=== PATIENT | male | born 1980 | race African-American/Black ===

== ENCOUNTER 2016-11-20 18:53 | Emergency (ER) | payer SELFPAY ==
[~2016-11-20] VITALS: Ht 165.1 cm; Wt 83.5 kg
[2016-11-20 19:38] VITALS: BP 130/82
[2016-11-22 12:25] LABS: CHLAMYDIA TRACHOMATIS POSITIVE; NEISSERIA GONORRHOEAE NEGATIVE
== END 2016-11-20 19:42 | disposition home or self-care (01) ==
LOC: EME 18:53
PROVIDERS: Physician Assistant
DX: Z11.3 Encounter for screening for infections with a predominantly sexual mode of transmission (principal)
CPT/HCPCS: 87491; 87591; 99281; 99283